=== PATIENT | female | born 1970 | race Caucasian/White ===

== ENCOUNTER 2020-05-06 20:11 | Emergency (ER) | payer BC, OTHER ==
--- NOTE | 2020-05-06 21:41 | RAD ---
PORTABLE CHEST: 05/06/20 HISTORY: Cough. Heart size and mediastinum are within normal limits. The lungs are clear of any infiltrates. No bony findings. IMPRESSION: No active intrathoracic disease. POS: [facility]
[2020-05-07 18:54] LABS: SARS-CoV-2 MS2 Positive; SARS-CoV-2 N Gene Positive; SARS-CoV-2 S Gene Positive; SARS-CoV-2 by NAA DETECTED (NotDetected); SARS-CoV-2 orf1ab Positive
== END 2020-05-06 21:41 | disposition home or self-care (01) ==
LOC: MADERS 20:11
DX: U07.1 COVID-19 (principal); K21.9 Gastro-esophageal reflux disease without esophagitis; F41.9 Anxiety disorder, unspecified; Z79.899 Other long term (current) drug therapy
CPT/HCPCS: 71045; 87635; U0003